=== PATIENT | male | born 1985 | race African-American/Black ===

== ENCOUNTER 2020-11-05 18:52 | Emergency (ER) | payer OTHER ==
[~2020-11-05] VITALS: Ht 180.3 cm; Wt 130.2 kg
[~2020-11-05 18:52] MED LIST: NAPROSYN500 MG PO; NOHOMEMEDICATIONS; PERCOCET 5-3251 EACH PO
[2020-11-05 18:59] VITALS: BP 129/78
[2020-11-05] MEDS ORDERED: TRAZODONE HCL100 MG PO (19:03)
[2020-11-05] MEDS ORDERED: ABILIFY 5 MG TAB5 MG PO (19:04)
[2020-11-05] MEDS ORDERED: PRILOSEC OTC20 MG PO (19:05)
[2020-11-05 19:22] LABS: URINE BILIRUBIN NEGATIVE (Negative); URINE BLOOD NEGATIVE (Negative); URINE CLARITY CLEAR; URINE COLOR YELLOW; URINE GLUCOSE-RANDOM* NEGATIVE (Negative); URINE KETONES NEGATIVE (Negative); URINE LEUKOCYTES-REFLEX NEGATIVE (Negative); URINE NITRITE-REFLEX NEGATIVE (Negative); URINE PROTEIN (DIPSTICK) NEGATIVE (Negative); URINE SPECIFIC GRAVITY 1.015 (1.005-1.035); URINE UROBILINOGEN 0.2 E.U./dl (0.2-1.0)
[2020-11-05 19:34] LABS: ABSOLUTE NEUTROPHILS 7.4 thou/uL (1.4-8.2); BASOPHILS 0.5 % (0.0-2.0); EOSINOPHILS 2.1 % (0.0-3.0); HEMATOCRIT 42.4 % (42.0-52.0); HEMOGLOBIN 13.9 gm/dL (14.0-18.0); LYMPHOCYTES 22.2 % (24.0-44.0); MCH 27.9 pg (26.0-34.0); MCHC 32.7 g/dL (28.0-37.0); MCV 85.4 fL (80.0-100.0); MONOCYTES 7.1 % (1.0-8.0); PLATELET COUNT 283 thou/uL (150-400); POLYS 68.1 % (36.0-66.0); RBC 4.97 mil/uL (4.50-6.00); RDW 14.2 % (10.5-14.5); WBC 10.9 thou/uL (4.0-11.0)
[2020-11-05 19:49] LABS: CALCIUM 8.8 mg/dL (8.5-10.1); CREATININE 1.4 mg/dL (0.7-1.3); POTASSIUM 3.9 mmol/L (3.5-5.1)
[2020-11-05] MEDS ORDERED: ZANAFLEX4 MG PO (20:15)
[2020-11-05] MEDS ORDERED: MOBIC7.5 MG PO (20:15)
== END 2020-11-05 20:42 | disposition home or self-care (01) ==
LOC: ER 18:52
PROVIDERS: Nurse Practitioner
DX: R10.9 Unspecified abdominal pain (principal); I10 Essential (primary) hypertension; F17.210 Nicotine dependence, cigarettes, uncomplicated; Z79.899 Other long term (current) drug therapy

== ENCOUNTER 2021-03-22 11:45 | Emergency (ER) | payer OTHER ==
[~2021-03-22] VITALS: Ht 180.3 cm; Wt 122.5 kg
[~2021-03-22 11:45] MED LIST changes: +ABILIFY 5 MG TAB5 MG PO; +MOBIC7.5 MG PO; +PRILOSEC OTC20 MG PO; +TRAZODONE HCL100 MG PO; +ZANAFLEX4 MG PO
[2021-03-22 11:49] VITALS: BP 166/114
[2021-03-22] MEDS ORDERED: PENICILLIN VK500 MG PO (12:07)
[2021-03-22] MEDS ORDERED: NORCO5 PO (12:07)
== END 2021-03-22 12:17 | disposition home or self-care (01) ==
LOC: ER 11:45
DX: K04.7 Periapical abscess without sinus (principal); I10 Essential (primary) hypertension; F17.210 Nicotine dependence, cigarettes, uncomplicated; F19.90 Other psychoactive substance use, unspecified, uncomplicated; Z79.899 Other long term (current) drug therapy; Z72.89 Other problems related to lifestyle